=== PATIENT | female | born 1985 | race Caucasian/White ===

== ENCOUNTER 2016-11-03 11:35 | Emergency (ER) | payer OTHER ==
[~2016-11-03] VITALS: Ht 165.1 cm; Wt 97.7 kg
[~2016-11-03 11:35] MED LIST: SERT20OR6 PO; WARF6TAB PO
[2016-11-03 11:43] VITALS: BP 132/90; PULSE 77; RESP 18; O2SAT 97
--- NOTE | 2016-11-03 12:35 | ED.REPORT ---
HPI-Chest Pain Under 40 Date of Service November 03, 2016 ED Provider: Sheldon Flores PA-C Antony is a 31-year-old female with a history of PE, DVT, hypothyroidism, factor V and prothrombin mutation presents to the emergency department with a chief complaint of chest tightness. She first noted this tightness at approximately 5:30 last night, she states it is improving since that time. Describes as "like somebody sitting on my chest." Patient states it feels different than her previous PEs. She also notes bilateral leg swelling and 10 pound weight gain over approximately last 24 hours. Patient reports difficulty in drawing a deep breath. Patient reports a history of hypothyroidism, for which she has been prescribed levothyroxine which she has not yet started. Patient takes propranolol for migraine headaches. Denies chest pain, palpitations, hemoptysis, shortness of breath, wheezing, fever, malaise, recent surgery, long distance travel, immobilization, cancer. Patient reports that she is currently nursing and her menstrual cycle has not returned yet. 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 Head: Atraumatic, normocephalic. Eyes: No scleral icterus or injection. No discharge. Vision grossly intact. ENT: Voice clear, hearing grossly intact. Respiratory: Regular rate and rhythm. Breath sounds present, clear to auscultation and equal bilaterally. No respiratory distress. No increased work of breathing, speaks in complete sentences. Cardiovascular: Regular rate and rhythm, without murmur, gallop or rub. No pedal edema. Gastrointestinal: Abdomen flat and non-tender without guarding or rebound. Bowel sounds normoactive. Skin: Warm and dry. Legs: Diameter roughly equal bilaterally, PT and DP pulses 2+, negative pitting edema. Negative calf tenderness. Neurological: Grossly nonfocal. Psychological: Alert and oriented. Speech appropriate, linear and logical. Behavior appropriate. Initial Vital Signs Vital Signs (First) Date Time Temp Pulse Resp B/P Pulse Ox O2 Delivery O2 Flow Rate FiO2 11/03/16 11:43 77 18 132/90 97 Room Air 11/03/16 14:02 36.7 Initial VS: Vital signs abnormal (elevated blood pressure) Interpretation & Diagnostics Lab Results Interpretation Result Diagram: 11/03/16 1205 11/03/16 1205 Test 11/03/16 12:05 11/03/16 12:40 White Blood Count 6.5th/mm3 (3.8-10.1) Red Blood Count 4.21mil/mm3 (3.90-5.20) Hemoglobin 11.9g/dL (12.0-15.6) Hematocrit 37.1% (35.0-46.0) Mean Corpuscular Volume 88.1fL (81-100) Mean Corpuscular Hemoglobin 28.3pg (27.0-35.0) Mean Corpuscular Hemoglobin Concent 32.1% (32.0-37.0) Red Cell Distribution Width 15.8% (12.3-15.4) Platelet Count 190bil/L (150-400) Neutrophils (%) (Auto) 58.5% (40-74) Lymphocytes (%) (Auto) 26.6% (14-46) Monocytes (%) (Auto) 13.1% (4-12) Eosinophils (%) (Auto) 1.2% (0-5) Basophils (%) (Auto) 0.3% (0-3) Prothrombin Time 23.9sec (8.1-12.5) Prothromb Time International Ratio 2.20ratio D-Dimer < 0.50mg/L FEU (<0.50) Sodium Level 140mEq/L (134-144) Potassium Level 4.1mEq/L (3.5-5.2) Chloride Level 103mEq/L (97-108) Carbon Dioxide Level 22mmol/L (18-29) Blood Urea Nitrogen 14mg/dL (6-20) Creatinine 0.72mg/dL (0.57-1.00) Estimat Glomerular Filtration Rate 137mL/min (>59) Glucose Level 83mg/dL (60-99) Calcium Level 9.0mg/dL (8.5-10.1) Magnesium Level 2.0mg/dL (1.6-2.6) Total Bilirubin 0.3mg/dL (0.0-1.2) Aspartate Amino Transf (AST/SGOT) 36U/L (0-50) Alanine Aminotransferase (ALT/SGPT) 33U/L (0-32) Alkaline Phosphatase 121U/L (25-150) Troponin T < 0.010ug/L (0.0-0.011) Pro-B-Type Natriuretic Peptide 212.0pg/mL (0-130) Total Protein 7.0g/dL (6.4-8.4) Albumin 3.9g/dL (3.4-5.0) Thyroid Stimulating Hormone (TSH) 0.718uIU/mL (0.450-4.500) Hold Urine Received (Received) ECG Interpretation Time: 12:42 Interpreted by: ED physician Normal ECG Interpretation: Normal rate, Normal sinus rhythm, No acute ischemic changes, Normal QRS, Normal axis, Normal intervals, No change from prior ECGs, Adequate tracing Re-Eval/Medical Decision Med Decision/Clinical Course 31-year-old female with a history of clotting disorders PE, DVT presents with chief complaint of chest tightness associated with bilateral leg swelling and a 10 pound weight gain overnight. History reveals negative pitting edema, DP and PT pulses 2+ and roughly symmetrical calf diameters. Lungs sounds clear and equal bilaterally, normal heart tones with regular rate and rhythm. Low risk group by well's criteria for PE. D-dimer is negative, INR is in therapeutic range at 2.2, troponin negative at less than 0.010, proBNP is slightly high at 212, though not thought to be clinically relevant. CMP is unremarkable with a slightly high ALT and CBC is unremarkable. Chest x-ray and EKG are normal. I do not feel a repeat troponin is warranted considering the duration of symptoms. At this point I am reassured that symptoms are not likely to be caused by DVT, PE, pneumonia, NM, CHF, hypothyroidism. I discussed this case with Dr. Canseco , and we feel that she is safe to be discharged to home. Advise primary care follow-up, provided emergency return precautions. Patient verbalizes understanding of and consent to the plan. Discharge & Departure Primary Impression: Chest tightness Additional Impression: Elevated blood pressure reading Disposition: Home Discharge Condition All VS Reviewed: Yes Condition: Stable Additional Instructions: Evaluation in the emergency department for leg swelling and chest tightness includes history, physical examination, blood work, EKG and chest x-ray, all of which are reassuring that her symptoms are unlikely to be caused by a dangerous condition such as a blood clot, or heart condition. I believe you are stable and safe to be discharged. I also note that your blood pressure was elevated during your visit to the emergency department. Please discuss this with your primary care provider. Follow-up with your primary care provider in the next few days to further assess your symptoms. Return to the emergency department for any new or worsening symptoms including shortness of breath, new or different chest pain, cough, unilateral leg swelling. Referrals: Jeanette Mccray MD (PCP) EDSupervising Provider for APC: Aron Canseco MD copies to: Jeanette Mccray MD, Seth PA-C November 03, 2016 12:35
[2016-11-03 12:56] LABS: TROPONIN T < 0.010 ug/L (0.0-0.011)
--- NOTE | 2016-11-03 13:01 | DRSVH ---
PROCEDURE: X-RAY CHEST ONE VIEW, PORTABLE ([id number]) INDICATIONS: cp TECHNIQUE: One view of the chest was acquired. COMPARISON: [facility], , CHEST 2VW, 08/30/2009, 12:13. FINDINGS: Surgical changes and devices: None. Lungs and pleura: No pleural effusions or pneumothorax. Lungs are clear. Mediastinum: Mediastinal contours appear normal. Heart size is normal. Bones and chest wall: No suspicious bony lesions. Overlying soft tissues appear unremarkable. IMPRESSION: No acute disease Dictated by: Tonio Wayne M.D. on 11/03/2016 at 12:53 Approved by: Tonio Wayne M.D. on 11/03/2016 at 12:59
[2016-11-03 13:12] LABS: BASOPHILS % (AUTO) 0.3 % (0-3); EOSINOPHILS % (AUTO) 1.2 % (0-5); MONOCYTES % (AUTO) 13.1 % (4-12); Mean Corpuscular Hemoglobin 28.3 pg (27.0-35.0); Mean Corpuscular Volume 88.1 fL (81-100); NEUTROPHILS % (AUTO) 58.5 % (40-74); Platelet Count 190 bil/L (150-400)
[2016-11-03 13:16] LABS: INR 2.2 ratio
[2016-11-03 14:02] VITALS: BP 116/74; PULSE 78; RESP 16; O2SAT 97
[2016-11-03 14:10] VITALS: BP 116/74; PULSE 78; RESP 16; O2SAT 97
== END 2016-11-03 14:11 | disposition home or self-care (01) ==
LOC: SED 11:35
DX: R07.89 Other chest pain (principal); I10 Essential (primary) hypertension; R63.5 Abnormal weight gain; M79.89 Other specified soft tissue disorders; E03.9 Hypothyroidism, unspecified; Z79.01 Long term (current) use of anticoagulants; Z88.8 Allergy status to other drugs, medicaments and biological substances; Z86.711 Personal history of pulmonary embolism; Z86.718 Personal history of other venous thrombosis and embolism